=== PATIENT | male | born 1965 | race Caucasian/White ===

== ENCOUNTER 2024-02-26 07:56 | Day surgery (SDC) | payer BC ==
[2024-02-26] MEDS: Lactated Ringers 1,000 ML IV SCH (08:40)
[2024-02-26] MEDS ORDERED: Lactated Ringers 1,000 ML IV SCH (09:30)
[2024-02-26] MEDS ORDERED: propofoL 50 ML ONE (12:26)
== END 2024-02-26 10:35 | disposition home or self-care (01) ==
LOC: MW.SDS 07:56
PROVIDERS: ATTEND Surgery
DX: Z12.11 Encounter for screening for malignant neoplasm of colon (principal); E11.9 Type 2 diabetes mellitus without complications; F41.9 Anxiety disorder, unspecified; E78.00 Pure hypercholesterolemia, unspecified; Z79.84 Long term (current) use of oral hypoglycemic drugs; Z79.899 Other long term (current) drug therapy
CPT/HCPCS: 45378; J2704; J7120; 00812